=== PATIENT | male | born 1950 | race Caucasian/White ===

== ENCOUNTER 2023-09-10 11:02 | Emergency (ER) | payer MEDICARE, SELFPAY ==
[2023-09-10] VITALS (7 sets, daily range): BP systolic 98–141; BP diastolic 44–81; PULSE 58–66; RESP 16–18; TEMP 36.6–36.9; O2SAT 95–97; BMI 34.0
--- NOTE | ~2023-09-10 | US_ITS ---
EXAMINATION: US ABDOMEN LIMITED CLINICAL INFORMATION: Right upper quadrant abdominal pain, elevated LFTs. COMPARISON: CT from 09/10/2023 TECHNIQUE: Real-time imaging of the right upper quadrant abdominal viscera. FINDINGS: PANCREAS: Obscured by bowel gas shadowing LIVER: Normal. The liver is normal in size. The liver contour is normal. Parenchymal echogenicity is normal. No focal hepatic lesion. There is minimal intrahepatic biliary ductal prominence GALLBLADDER: Echogenic bile is seen within the lumen of the gallbladder. The gallbladder is partially decompressed without evidence of wall thickening or pericholecystic fluid. COMMON BILE DUCT: Top normal in caliber measuring 0.6 cm in diameter. RIGHT KIDNEY: There is an anechoic cyst in the lower pole measuring 2.3 x 2.0 x 3.5 cm. No hydronephrosis or renal calculi. The kidney measures 12.3 cm in maximum dimension. FREE FLUID: None. US/US abdomen limited IMPRESSION: 1. Minimal intrahepatic biliary ductal prominence. Common bile duct is top normal in caliber measuring 0.6 cm. Echogenic bile is seen within the lumen of the gallbladder. No evidence of acute cholecystitis. 2. Right renal cyst.
--- NOTE | ~2023-09-10 | XR_ITS ---
EXAMINATION: XR CHEST CLINICAL INFORMATION: Chest pain. COMPARISON: None available. TECHNIQUE: Frontal view of the chest was obtained. FINDINGS: The lungs are well-expanded and clear. The heart size and pulmonary vascularity is normal. No gross bony abnormality seen. XR/XR chest 1V IMPRESSION: Unremarkable chest examination.
--- NOTE | ~2023-09-10 | CT_ITS ---
EXAMINATION: CT ABDOMEN AND PELVIS WITH CONTRAST CLINICAL INFORMATION: Diffuse abdominal pain COMPARISON: None available. TECHNIQUE: Multidetector volumetric images were obtained from the superior aspect of the liver through the pubic symphysis following administration 85 mL of Omnipaque 350 intravenous contrast. Sagittal and coronal reformatted images were obtained on the technologist's workstation. Oral contrast: No This CT examination was performed using dose optimization techniques as appropriate, variously including the following: *Automated exposure control *Adjustment of mA and/or kV according to patient size (this includes techniques or standardized protocols for targeted exams where dose is matched to indication/reason for exam; i.e. extremities or head) *Use of iterative reconstruction technique DLP: 638 mGy-cm FINDINGS: LUNG BASES: Atelectasis is present at the lung bases. Calcification seen in the aortic leaflets. Heart size normal. No suspicious lung masses or pleural effusions. LIVER, GALLBLADDER, AND BILIARY TREE: The liver is normal in size, shape, and attenuation. No focal hepatic lesion. There is mild prominence of intrahepatic bile ducts. The common bile duct is dilated at 8 mm. No gallstones are seen. The gallbladder wall is slightly thickened. The patient has right upper quadrant pain would recommend an ultrasound. PANCREAS: Unremarkable. SPLEEN: Spleen is enlarged at 13 cm. ADRENAL GLANDS: Unremarkable. KIDNEYS AND URETERS: The kidneys are normal in size, shape, and attenuation. There is a rounded mass arising from the mid right kidney posteriorly. It predominantly measures water density but does have a few areas of high density within it. This is probably a Bosniak class II cyst but ultrasound is recommended for further evaluation. No other renal masses. No hydronephrosis, hydroureter, or calculi seen. No perinephric stranding. BLADDER: Air is present in the bladder which is not normal. Please correlate with any history of catheterization and urinary tract symptoms and may represent cystitis. GASTROINTESTINAL TRACT: There are sigmoid diverticula without diverticulitis. There is a segment of the transverse colon that appears to have mucosal thickening although this could be due to poor expansion. The small and large bowel are unremarkable. The appendix is unremarkable. ABDOMINAL WALL: No significant hernia is appreciated. LYMPH NODES: Normal. VASCULAR: Calcific atherosclerotic changes are present in the aorta and iliofemoral vessels. There is no evidence of an abdominal aortic aneurysm. PELVIC VISCERA: Unremarkable. OSSEOUS STRUCTURES: Degenerative changes are present in the spine along with scoliosis convex to the right. No bony destructive lesions. CT/CT abdomen pelvis w IV con IMPRESSION: 1. There is mild prominence of intrahepatic bile ducts and common bile duct. The gallbladder wall is slightly thickened. If the patient has right upper quadrant pain would recommend an ultrasound. 2. There is a rounded mass arising from the mid right kidney posteriorly. It measures water density but does have a few areas of high density within it. This is probably a Bosniak class II cyst but ultrasound is recommended for further evaluation. 3. Air is present in the bladder. Please correlate with any history of catheterization and urinary tract symptoms and may represent cystitis. 4. There is a segment of the transverse colon that appears to have mucosal thickening although this is probably due to poor expansion rather than colitis. 5. Mild splenomegaly. 6. Other incidental findings as described above. Fleischner guidelines were followed.
--- NOTE | 2023-09-10 11:14 | ECG_ITS ---
Test Reason : CHEST PAIN Blood Pressure : / mmHG Vent. Rate : 062 BPM Atrial Rate : 062 BPM P-R Int : 238 ms QRS Dur : 148 ms QT Int : 426 ms P-R-T Axes : 032 -09 018 degrees QTc Int : 432 ms Sinus rhythm with 1st degree A-V block Right bundle branch block Abnormal ECG No previous ECGs available Referred By: Generic ED Physician Electronically Signed By:ESTELA RODRIGUEZ
[2023-09-10 12:22] LABS: MANUAL DIFF FLAG NO
[2023-09-10 12:26] LABS: Basophils Absolute Auto 0.1 X10*3/uL (0.0-0.2); Basophils Percent Auto 0.5 % (0-2); Eosinophils Absolute Auto 0.2 X10*3/uL (0.0-0.4); Eosinophils Percent Auto 0.9 % (0-4); Hematocrit 40.7 % (42.0-52.0); Hemoglobin 13.6 g/dl (14.0-18.0); Imm Gran Abs Auto 0.08 X10*3/uL (0.00-0.03); Imm Gran Pct Auto 0.5 % (0.0-0.4); Lymphocytes Absolute Auto 4.6 X10*3/uL (1.2-4.9); Lymphocytes Percent Auto 26.1 % (20-40); Mean Corpuscular HGB Conc 33.4 g/dl (31.0-36.0); Mean Corpuscular Hemoglobin 31.3 pg (27.0-33.0); Mean Corpuscular Volume 93.8 fL (80.0-98.0); Mean Platelet Volume 10.7 fL (9.4-12.4); Monocytes Absolute Auto 0.6 X10*3/uL (0.1-1.2); Monocytes Percent Auto 3.7 % (2-11); Neutrophils Absolute Auto 11.9 x10*3/uL (2.0-8.3); Neutrophils Percent Auto 68.3 % (45-73); Platelet Count 297 X10*3/uL (160-400); Red Blood Count 4.34 X10*6/uL (4.60-5.80); Red Cell Distribution Width 14.6 % (11.0-16.0); White Blood Count 17.4 X10*3/uL (4.8-10.8)
[2023-09-10 12:38] LABS: Alanine Aminotransferase 74 U/L (0-40); Albumin Level 4.1 g/dL (3.5-5.0); Alkaline Phosphatase 160 U/L (39-117); Anion Gap 13 (12-20); Aspartate Amino Transferase 107 U/L (5-37); Blood Urea Nitrogen 22 mg/dL (9-16); Calcium 10.1 mg/dL (8.4-10.2); Carbon Dioxide 25 mmol/L (22-29); Chloride 106 mmol/L (96-108); Estimated Glomerular Filt Rate > 60; Glucose Random 143 mg/dL (60-115); Potassium 4.1 mmol/L (3.3-5.1); Sodium 140 mmol/L (135-145); Total Protein 6.9 g/dL (6.5-8.0)
[2023-09-10 12:44] LABS: Troponin-I High Sensitivity 3.9 ng/L (<3.5-35.0)
--- NOTE | 2023-09-10 12:44 | PC.NURSE ---
pt aox4. comes in with chest pain that started last night and resolved. this morning pain recurred and pt had one bought of vomiting. pt describes pain as dull and just below sternum. EMS gave 1 nitro pill and 324 aspirin which helped pain. EKG done, initial labs drawn, NSR on tele. PA notified of pt in ED, waiting for provider sign-up
[2023-09-10 12:54] LABS: Influenza A PCR NEGATIVE (Negative); Influenza B PCR NEGATIVE (Negative); Resp Syncy Virus RNA Qual PCR NEGATIVE (Negative); SARS COV2 PCR INHOUSE NEGATIVE (Negative)
--- NOTE | 2023-09-10 13:03 | PC.NURSE ---
pt has scabs on knees in various stages of healing, cushioned dressings are on bilat elbows. Pt states these are from when he fell about a month ago and was not able to get up. Pt reports that pain has almost resolved. BP soft - 98/59. notified - still waiting for provider order picker
--- NOTE | 2023-09-10 14:14 | PC.NURSE ---
pt reports that his chest pain has almost gone away completely. NSR on tele. denies shortness of breath, denies any other symptoms. Pt is currently staying at [facility] and is receiving physical therapy to help him walk
--- NOTE | 2023-09-10 15:06 | ED_ITS ---
HPI - Chest Pain General Chief Complaint: Chest Pain Stated Complaint: CHEST PAIN Time Seen by Provider: 09/10/23 14:45 Source: patient Mode of arrival: EMS Limitations: no limitations History of Present Illness HPI narrative: Patient comes to the emergency room from a nursing home facility. Patient reports that yesterday he had an episode of chest pain that lasted for about 1/2 hour and then self-resolved. Patient states that this morning patient was working with physical therapy, got up to walk, patient had recurrent chest pain with shortness of breath. Patient was given nitroglycerin aspirin 324 mg. At this time, patient states that he feels much better. Patient also reports that for couple of days he has been having bilateral upper and lower quadrant pain. Denies diarrhea, had 1 episode of vomiting today. Patient denies fever chills. Patient states that he did denies dysuria or flank pain but his urine has been looking cloudy and darker for about a month. Related Data Allergies Allergy/AdvReac Type Severity Reaction Status Date / Time Penicillins Allergy Unknown Verified 09/10/23 11:23 Review of Systems 2 Review of Systems: Constitutional : No Weight loss, No Fever, No Chills, No Night Sweats, No Fatigue, No Malaise ENT/Mouth : No Hearing loss, No Ear Pain, No Nasal Congestion, No Sinus Pain, No Hoarseness, No sore throat, No Rhinorrhea, No Swallowing Difficulty Eyes: No Eye Pain, No Swelling, No Redness, No Foreign Body, No Discharge, No Vision Changes Cardiovascular : Intermittent chest pain, No SOB, No Dyspnea on Exertion, No Orthopnea, No Edema, No Palpitations Respiratory : No Cough, No Sputum, No Wheezing, No Smoke Exposure, No Dyspnea Gastrointestinal : 1 episode of Vomiting, No Diarrhea, No Constipation, complaining of diffuse abdominal pain, no hematochezia, no melena Genitourinary : no irregular bleeding, No Dysuria, No Urinary Frequency, No Hematuria, No Urinary Incontinence, No Urgency, No Flank Pain, No Urinary Flow Changes, No Hesitancy Musculoskeletal : No joint pain, No Myalgias, No Joint Swelling Skin : No Skin Lesions, No rash Neuro : No Weakness, No Numbness, No Paresthesias, No Loss of Consciousness, No Dizziness, No Headache Psych : No Anxiety/Panic, No Depression, No SI/HI/AH/VH, No Social Issues, Heme/Lymph: No Bruising, No Bleeding,No Lymphadenopathy Endocrine : No Polyuria, No Polydipsia, No Temperature Intolerance FOR[facility]LY [facility], [facility] Past Medical History Medical History Hypertension Diabetes Social History Social History Smoked in Last 30 Days: No Use of substances other than those prescribed or required for medical reasons: Yes Substance Use Type: Marijuana Advance Directives: Yes Advance Directives Information Provided: Yes Advance Directives on File: No Physical Exam 2 Vital Signs: Vital Signs: Last Vital Signs Temp 98.2 F 09/10/23 20:00 Pulse 61 09/10/23 20:00 Resp 16 09/10/23 20:00 BP 111/63 09/10/23 20:00 Pulse Ox 96 09/10/23 20:00 O2 Del Method Room Air 09/10/23 20:00 BMI result Body Mass Index 34.0 Const: Other: Appearance: Alert. Oriented X3. No acute distress. Eyes: Pupils equal, round and reactive to light. ENT: Pharynx normal. Neck: Normal inspection. Neck supple. No lymph nodes noted. No crepitus CVS: Normal heart rate and rhythm. Pulses normal. Normal S1 and S2 Respiratory: No respiratory distress. Breath sounds normal. No Wheezing. No rales Abdomen: Soft mild discomfort to palpation on the right upper and lower quadrant, no rebound, no guarding Skin: Skin warm and dry. Patient has elbow healing ulcers, no signs of cellulitis Extremities: No lower extremity edema. No Lacerations. No Rash Neuro: Oriented X 3. No motor deficit. No sensory deficit. Moving all extremities. No slurred speech. CN 2 through 12 grossly intact Psych: calm, cooperative, normal affect Course Course Course Narrative: -all of patient's labs and imaging pending Medications Administered Discontinued Medications Generic Name Dose Route Start Last Admin Trade Name Freq PRN Reason Stop Dose Admin Acetaminophen 975 mg 09/10/23 17:11 09/10/23 17:50 Acetaminophen 325 Mg Tablet PO 09/10/23 17:12 975 mg ONCE ONE Administration Iohexol 85 ml 09/10/23 16:49 09/10/23 16:50 Iohexol 350 Mg/Ml 100 Ml Infus..Btl IV 09/10/23 16:50 85 ml ONCE ONE Administration Medical Decision Making Medical Decision Making MDM Narrative: -my interpretation of labs, hematology 17.4, no previous comparison. No obvious signs of infection, no recent URI or UTI symptoms. Patient's LFTs elevated, again no previous labs for comparison. Troponin 1 is negative -my interpretation of EKG: Normal sinus rhythm, first-degree AV block, right bundle branch block, no ST segment depression or elevation, T-wave inversion in V1 through V3, QTC 432 -at this time, 15:17, patient is asymptomatic, no chest pain or shortness of breath, no abdominal pain, blood pressure 122/55, heart rate 66, oxygen saturation 95% on room air. -my interpretation of chest x-ray, no infiltrates -patient states that he has not had any chest pain or palpitations since he has been here in the ED. Troponin x2 negative. -I discussed the CT scan findings with the patient, patient states that he has mild intermittent abdominal pain the right upper quadrant, a significant pain at this time or on deep palpation. We will go ahead and order an ultrasound to rule out acute cholecystitis. Also, there was an incidental finding, renal mass, likely a cyst, recommendations per Radiology and ultrasound. Discussed the above-mentioned findings with the patient, we will obtain ultrasounds of both, kidney in gallbladder. Patient agreeable -patient has been in the ER for several hours, patient has not had any episodes of chest pain, shortness of breath or abdominal pain. -ultrasound Radiology report: Common bile duct is normal, no evidence of acute cholecystitis, patient has a right renal cyst. -patient remains asymptomatic, requesting to be discharged back to his facility. Differential Diagnosis Differential Diagnoses: The differential diagnosis associated with the presentation includes (Stable angina, ACS, GERD, acute cholecystitis, renal mass, renal cyst) Admission/Observation Consideration of admission/observation: Escalation of care including admission/observation considered (Given patient's history and symptoms, admission was considered on arrival) Lab Data MDM Lab Attestation statement: I reviewed the patient's lab results. 09/10/23 12:18 09/10/23 12:18 Labs: Lab Results 09/10/23 09/10/23 09/10/23 Range/Units 12:07 12:18 15:16 WBC 17.4 H (4.8-10.8) X10*3/uL RBC 4.34 L (4.60-5.80) X10*6/uL Hgb 13.6 L (14.0-18.0) g/dl Hct 40.7 L (42.0-52.0) % MCV 93.8 (80.0-98.0) fL MCH 31.3 (27.0-33.0) pg MCHC 33.4 (31.0-36.0) g/dl RDW 14.6 (11.0-16.0) % Plt Count 297 (160-400) X10*3/uL MPV 10.7 (9.4-12.4) fL Immature Gran % (Auto) 0.5 H (0.0-0.4) % Neut % (Auto) 68.3 (45-73) % Lymph % (Auto) 26.1 (20-40) % [place] % (Auto) 3.7 (2-11) % Eos % (Auto) 0.9 (0-4) % Baso % (Auto) 0.5 (0-2) % Lymph # (Auto) 4.6 (1.2-4.9) X10*3/uL [place] # (Auto) 0.6 (0.1-1.2) X10*3/uL Eos # (Auto) 0.2 (0.0-0.4) X10*3/uL Baso # (Auto) 0.1 (0.0-0.2) X10*3/uL Abs Immat Gran (auto) 0.08 H (0.00-0.03) X10*3/uL Absolute Neuts (auto) 11.9 H (2.0-8.3) x10*3/uL Absolute Nucleated RBC 0.000 (0.0-0.012) X10*3/uL Nucleated RBC % (auto) 0.0 (0.0-0.2) /100WBC Sodium 140 (135-145) mmol/L Potassium 4.1 (3.3-5.1) mmol/L Chloride 106 (96-108) mmol/L Carbon Dioxide 25 (22-29) mmol/L Anion Gap 13 (12-20) BUN 22 H (9-16) mg/dL Creatinine 0.87 (0.5-1.4) mg/dL Estim Creat Clear Calc 90.0 Estimated GFR > 60 POC Glucose (60-115) mg/dL Random Glucose 143 H (60-115) mg/dL Calcium 10.1 (8.4-10.2) mg/dL Magnesium 2.0 (1.6-2.6) mg/dL Total Bilirubin 1.0 (0.0-1.0) mg/dL AST 107 H (5-37) U/L ALT 74 H (0-40) U/L Alkaline Phosphatase 160 H (39-117) U/L Troponin I High Sens 3.9 < 2.7 (<3.5-35.0) ng/L Total Protein 6.9 (6.5-8.0) g/dL Albumin 4.1 (3.5-5.0) g/dL Urine Color Urine Appearance Urine pH (5.0-9.0) Ur Specific [place] (1.005-1.025) Urine Protein (Neg-Trace) mg/dL Urine Glucose (UA) (Negative) mg/dL Urine Ketones (Negative) mg/dL Urine Blood (Negative) Urine Nitrite (Negative) Ur Leukocyte Esterase (Negative) Influenza Type A (PCR) NEGATIVE (Negative) Influenza Type B (PCR) NEGATIVE (Negative) RSV RNA Qual (PCR) NEGATIVE (Negative) SARS-CoV-2 RNA (RT-PCR) NEGATIVE (Negative) 09/10/23 09/10/23 Range/Units 16:23 20:03 WBC (4.8-10.8) X10*3/uL RBC (4.60-5.80) X10*6/uL Hgb (14.0-18.0) g/dl Hct (42.0-52.0) % MCV (80.0-98.0) fL MCH (27.0-33.0) pg MCHC (31.0-36.0) g/dl RDW (11.0-16.0) % Plt Count (160-400) X10*3/uL MPV (9.4-12.4) fL Immature Gran % (Auto) (0.0-0.4) % Neut % (Auto) (45-73) % Lymph % (Auto) (20-40) % [place] % (Auto) (2-11) % Eos % (Auto) (0-4) % Baso % (Auto) (0-2) % Lymph # (Auto) (1.2-4.9) X10*3/uL [place] # (Auto) (0.1-1.2) X10*3/uL Eos # (Auto) (0.0-0.4) X10*3/uL Baso # (Auto) (0.0-0.2) X10*3/uL Abs Immat Gran (auto) (0.00-0.03) X10*3/uL Absolute Neuts (auto) (2.0-8.3) x10*3/uL Absolute Nucleated RBC (0.0-0.012) X10*3/uL Nucleated RBC % (auto) (0.0-0.2) /100WBC Sodium (135-145) mmol/L Potassium (3.3-5.1) mmol/L Chloride (96-108) mmol/L Carbon Dioxide (22-29) mmol/L Anion Gap (12-20) BUN (9-16) mg/dL Creatinine (0.5-1.4) mg/dL Estim Creat Clear Calc Estimated GFR POC Glucose 103 (60-115) mg/dL Random Glucose (60-115) mg/dL Calcium (8.4-10.2) mg/dL Magnesium (1.6-2.6) mg/dL Total Bilirubin (0.0-1.0) mg/dL AST (5-37) U/L ALT (0-40) U/L Alkaline Phosphatase (39-117) U/L Troponin I High Sens (<3.5-35.0) ng/L Total Protein (6.5-8.0) g/dL Albumin (3.5-5.0) g/dL Urine Color Dark Yellow Urine Appearance Clear Urine pH 5.5 (5.0-9.0) Ur Specific [place] 1.025 (1.005-1.025) Urine Protein Negative (Neg-Trace) mg/dL Urine Glucose (UA) Negative (Negative) mg/dL Urine Ketones Trace (Negative) mg/dL Urine Blood Negative (Negative) Urine Nitrite Negative (Negative) Ur Leukocyte Esterase Negative (Negative) Influenza Type A (PCR) (Negative) Influenza Type B (PCR) (Negative) RSV RNA Qual (PCR) (Negative) SARS-CoV-2 RNA (RT-PCR) (Negative) Independent Interpretation I performed an independent interpretation of an: Plain X-Ray and Ultrasound (My interpretation of ultrasound: Gallbladder does not seem to be thickened or have any stones) Radiology Impression Discussion of test interpretation with radiology: I have reviewed the radiologist's reading. Radiologist Impression: FINDINGS: The lungs are well-expanded and clear. The heart size and pulmonary vascularity is normal. No gross bony abnormality seen. XR/XR chest 1V IMPRESSION: Unremarkable chest examination Real-time imaging of the right upper quadrant abdominal viscera. FINDINGS: PANCREAS: Obscured by bowel gas shadowing LIVER: Normal. The liver is normal in size. The liver contour is normal. Parenchymal echogenicity is normal. No focal hepatic lesion. There is minimal intrahepatic biliary ductal prominence GALLBLADDER: Echogenic bile is seen within the lumen of the gallbladder. The gallbladder is partially decompressed without evidence of wall thickening or pericholecystic fluid. COMMON BILE DUCT: Top normal in caliber measuring 0.6 cm in diameter. RIGHT KIDNEY: There is an anechoic cyst in the lower pole measuring 2.3 x 2.0 x 3.5 cm. No hydronephrosis or renal calculi. The kidney measures 12.3 cm in maximum dimension. FREE FLUID: None. US/US abdomen limited IMPRESSION: 1. Minimal intrahepatic biliary ductal prominence. Common bile duct is top normal in caliber measuring 0.6 cm. Echogenic bile is seen within the lumen of the gallbladder. No evidence of acute cholecystitis. 2. Right renal cyst. Critical Care Time Critical Care Time Critical Care Time: Yes Total Critical Care Time: 60 Attestation: I have personally provided critical care time. Time includes review of lab data, radiology results, discussion with consultants, and monitoring for potential decompensation. Intervention performed as documented. Discharge Plan Discharge Clinical Impression: Atypical chest pain, Renal cyst Patient Disposition: Home, Self-Care Instructions: Chest Pain (ED), Kidney Cyst (ED)
--- NOTE | 2023-09-10 15:18 | MHC.EDTECH ---
THIS PCT JUST ASSUMED CARE OF PT ,VITALS TAKEN ,TROP DRAWN AND SENT TO LAB .
[2023-09-10 16:17] LABS: Troponin-I High Sensitivity < 2.7 ng/L (<3.5-35.0)
--- NOTE | 2023-09-10 16:24 | MHC.EDTECH ---
PATIENT URINE SAMPLE COLLECTED AND SENT TO LAB .
[2023-09-10 16:30] LABS: Appearance Urine Clear; Color Urine Dark Yellow; Glucose Urine UA Negative (Negative); Leukocyte Esterase Urine Negative (Negative); Nitrite Urine Negative (Negative); PH 5.5 (5.0-9.0); Specific Gravity - Urine 1.025 (1.005-1.025); Urine Blood Negative (Negative); Urine Ketones Trace mg/dL (Negative); Urine Protein Negative (Neg-Trace)
[2023-09-10] MEDS: iohexoL 350 MG/ML 100 ML INFUS..BTL 85 ML IV (16:50)
[2023-09-10] MEDS: Acetaminophen 325 MG TABLET 975 MG PO (17:50)
--- NOTE | 2023-09-10 19:32 | PC.NURSE ---
pt back from ultrasound, reports some relief from headache with tylenol
--- NOTE | 2023-09-10 20:05 | MHC.EDTECH ---
2000 rounding done ,vitals taken ,pt was concern about his blood sugar being low ,this pct check PT BLOOD SUGAR IT WAS 103 rn [place] aware .
[2023-09-10 20:14] LABS: Glucose, Whole Blood 103 mg/dL (60-115)
--- NOTE | 2023-09-10 21:35 | MHC.EDTECH ---
Called Germaine regarding tx back to [facility]. ETA- 45mins-1 hour
== END 2023-09-10 22:02 | disposition home or self-care (01) ==
PROVIDERS: Emergency Provider Emergency Medicine; PCP Internal Medicine
DX: R07.89 Other chest pain (principal); N28.1 Cyst of kidney, acquired; Z20.822 Contact with and (suspected) exposure to COVID-19; Z20.828 Contact with and (suspected) exposure to other viral communicable diseases; Z79.899 Other long term (current) drug therapy
CPT/HCPCS: 0241U; 36415; 71045; 74177; 76705; 80053; 81003; 82947; 83735; 84484; 85025; 93005; 99284; 99285; Q9967

== ENCOUNTER → 2023-09-10 11:14 | Outpatient (BNV) | payer MEDICARE, SELFPAY | PROVIDERS: Emergency Provider Emergency Medicine; PCP Internal Medicine; Visit Provider Internal Medicine | DX: R07.9 Chest pain, unspecified (principal) | CPT/HCPCS: 93010 ==